=== PATIENT | female | born 1950 | race Caucasian/White ===

== ENCOUNTER 2018-04-25 05:31 | Day surgery (SDC) | payer MEDICARE, OTHER ==
[~2018-04-25 05:31] MED LIST: Dextrose 5%-0.45% NaCl 1,000 ML IV SCH; Sodium Chloride 0.9% 10 ML Syringe FLUSH PRN
[2018-04-25] MEDS ORDERED: Midazolam 1 MG/ML 2 ML SDV IV ONE ×7 (05:32→06:53)
[2018-04-25] MEDS ORDERED: fentaNYL 100 MCG/2 ML SDV IV ONE ×4 (05:32→06:57)
[2018-04-25] MEDS ORDERED: Midazolam 1 MG/ML 2 ML SDV ONE (06:10)
[2018-04-25] MEDS ORDERED: fentaNYL 100 MCG/2 ML SDV ONE (06:10)
--- NOTE | 2018-04-25 07:44 | OR ---
DATE: 04/25/2018 PROCEDURES PERFORMED: Total colonoscopy, NBI, and multiple snare polypectomies. INSTRUMENT USED: CF-H180AL Olympus video colonoscope. PREMEDICATIONS: Fentanyl 125 mcg intravenous, Versed 4 mg intravenous. Nasal O2 cannula. The procedure was done under pulse oximetry, BP recording, and calculation clerk. INDICATION: Screening colonoscopic examination is done for detection of any polypoid lesions and removal, endoscopic hemostasis therapy if needed. DESCRIPTION OF PROCEDURE: Initial rectal exam was unremarkable. Rigid anoscopy was normal. The colonoscope was passed with ease. Scattered diverticula were noted in the distal left colon along with deformity. The scope was passed with ease up to the ileocecal area. Photographs were taken of the normal-appearing cecum, identified by double-bulged ileocecal folds. No bleeding was noted from any of the visualized areas at the commencement of the examination. Bowel preparation was found to be adequate. In the proximal rectum, a 5 mm sized, benign-appearing polyp was noted, photograph was taken, cold snare polypectomy was done, the tissue was retrieved and sent for histopathology. In the distal descending colon, 1 cm sized pedunculated polyp was noted. NBI views were obtained, photographs were taken, snare polypectomy was done, the tissue was retrieved and sent for histopathology. Polypectomy site was found to be clean. In the mid ascending colon, 1 cm sized sessile polyp was noted. NBI views were obtained, photographs were taken, snare polypectomy was done, the tissue was retrieved and sent for histopathology. Probing the proximal sides of folds and flexures, using adequate distention and clearing up the stool material, withdrawal of the scope was made. No bleeding was noted from any of the visualized areas at the completion of examination. IMPRESSION: Multiple colonic polyps. The patient tolerated the procedure well. [facility] /[id number]
[2018-04-25 09:05] VITALS: BP 118/75
--- NOTE | 2018-04-25 09:38 | LETTER ---
04/25/2018 Mary Francois MD [address] [id number] RE: PER MANCERAANNE : [address] Francois: Ms. Per Mancera had colonoscopic examination done this morning and she tolerated the procedure well. I herewith send a copy of the endoscopy note and photographs for your review. Thank you. Sincerely, [facility] /[id number]
== END 2018-04-25 09:16 | disposition home or self-care (01) ==
LOC: DL.ENDO 05:31
PROVIDERS: ATTEND Internal Medicine Gastroenterology
DX: Z12.11 Encounter for screening for malignant neoplasm of colon (principal); D12.2 Benign neoplasm of ascending colon; D12.4 Benign neoplasm of descending colon; K62.1 Rectal polyp; K57.30 Diverticulosis of large intestine without perforation or abscess without bleeding
CPT/HCPCS: 45385; J2250; J3010; J7042

== ENCOUNTER 2023-04-26 05:52 | Day surgery (SDC) | payer MEDICARE, OTHER ==
[2023-04-26] MEDS ORDERED: Dextrose 5%-0.45% NaCl 1,000 ML IV SCH (06:00)
[2023-04-26] MEDS ORDERED: fentaNYL 100 MCG/2 ML SDV ONE (06:11)
[2023-04-26] MEDS ORDERED: Midazolam 1 MG/ML 2 ML SDV ONE (06:11)
[2023-04-26] MEDS ORDERED: fentaNYL 100 MCG/2 ML SDV IV ONE ×2 (07:32→07:33)
[2023-04-26] MEDS ORDERED: Midazolam 1 MG/ML 2 ML SDV IV ONE ×6 (07:33→07:43)
[2023-04-26 08:42] VITALS: BP 146/79; PULSE 86
== END 2023-04-26 09:17 | disposition home or self-care (01) ==
LOC: DL.ENDO 05:52
PROVIDERS: ATTEND Internal Medicine Gastroenterology
DX: K57.30 Diverticulosis of large intestine without perforation or abscess without bleeding (principal); I10 Essential (primary) hypertension; M81.0 Age-related osteoporosis without current pathological fracture; F41.1 Generalized anxiety disorder; E66.09 Other obesity due to excess calories; Z85.038 Personal history of other malignant neoplasm of large intestine; Z80.0 Family history of malignant neoplasm of digestive organs; Z86.010 Personal history of colon polyps; Z90.49 Acquired absence of other specified parts of digestive tract; Z68.26 Body mass index [BMI] 26.0-26.9, adult; Z88.8 Allergy status to other drugs, medicaments and biological substances
CPT/HCPCS: J2250; J3010; J7042

== ENCOUNTER 2025-03-07 06:21 | Day surgery (SDC) | payer MEDICARE, OTHER ==
[2025-03-07] MEDS ORDERED: Lidocaine 1% 30 ML SDV INJECT ONE (06:30)
[2025-03-07] MEDS ORDERED: Acetaminophen 325 MG Tab PO PRN (06:30)
[2025-03-07] MEDS ORDERED: VANCOmycin 500 MG SDV EYERT ONE (06:30)
[2025-03-07] MEDS: Moxifloxacin 0.5% Ophth Soln 3 ML Bottle EYERT ONE (07:00)
[2025-03-07] MEDS: Proparacaine 0.5% Ophth Soln 15 ML Bottle EYERT ONE ×2 (07:00→08:10)
[2025-03-07] MEDS: Povidone-Iodine 5% Sterile Ophth Soln 30 ML Bottle EYERT ONE ×2 (07:01→08:10)
[2025-03-07] MEDS: Timolol Maleate 0.5% Ophth Soln 5 ML Bottle EYERT ONE (07:02)
[2025-03-07] MEDS: Phenylephrine 10% Ophth Soln 5 ML Bot EYERT PRN (07:02)
[2025-03-07] MEDS: Tropicamide 1% Ophth Soln 15 ML Bottle EYERT ONE (07:02)
[2025-03-07] MEDS: Cataract Ophth Solution EYERT ONE (07:03)
[2025-03-07] MEDS ORDERED: Midazolam 1 MG/ML 2 ML SDV ONE (07:10)
[2025-03-07] MEDS ORDERED: fentaNYL 100 MCG/2 ML SDV ONE (07:11)
[2025-03-07] MEDS: Diclofenac Sodium 0.1% Ophth Soln 5 ML Bottle EYERT ONE (08:10)
[2025-03-07] MEDS: Apraclonidine 0.5% Ophth Soln 5 ML Bot EYERT ONE (08:10)
[2025-03-07] MEDS: Dexamethasone/Neomycin/Polymyxin B Ophth Oint 3.5 GM Tube EYERT ONE (08:14)
[2025-03-07] MEDS: Lidocaine 1% 30 ML SDV INJECT ONE (08:14)
[2025-03-07 09:33] VITALS: BP 123/90
[2025-03-07 09:35] VITALS: PULSE 71
[2025-03-07] MEDS ORDERED: Ondansetron 4 MG/2 ML SDV IVPUSH PRN (12:10)
== END 2025-03-07 09:10 | disposition home or self-care (01) ==
LOC: DL.SDS 06:21
PROVIDERS: ATTEND Ophthalmology
DX: H26.8 Other specified cataract (principal); I10 Essential (primary) hypertension; J43.8 Other emphysema; F41.9 Anxiety disorder, unspecified; Z87.891 Personal history of nicotine dependence; Z79.899 Other long term (current) drug therapy
CPT/HCPCS: A9270-GY; J2003; J3490